=== PATIENT | female | born 1965 ===

== ENCOUNTER 2023-07-09 21:20 | Outpatient (REF) | payer MEDICAID, SELFPAY ==
[2023-07-09 21:45] LABS: HCT 39.8 % (36.0-46.0); MCH 29.1 pg (27.0-33.0); MCHC 32.7 % (32.0-36.0); MCV 89 fL (80-95); Platelet Count 188 10^3/uL (130-400); RBC 4.47 10^6/uL (3.93-5.22); RDW 13.2 % (11.7-14.6); RDW-SD 43.3 fL; WBC 6.05 10^3/uL (4.4-10.8)
[2023-07-09 21:55] LABS: ALT 30 U/L (14-59); AST 23 U/L (15-37); Albumin 3.3 g/dL (3.4-5.0); Alkaline Phosphatase 84 U/L (46-116); Anion Gap 6.6 mmol/L (3-11); BUN 16 mg/dL (7-18); Bilirubin, Total 0.6 mg/dL (0.2-1.0); CO2 27.4 mmol/L (21.0-32.0); CREATININE 0.8 mg/dL (0.55-1.02); Calcium 8.8 mg/dL (8.5-10.1); Chloride 107 mmol/L (98-107); Estimated GFR 84.82 (mL/min/1.73m2); Glucose 109 mg/dL (74-106); Potassium 4.3 mmol/L (3.5-5.1); Sodium 141 mmol/L (136-145); Total Protein 6.9 g/dL (6.4-8.2)
== END 2023-07-09 21:21 | disposition home or self-care (01) ==
LOC: NCHCN 21:20
PROVIDERS: Visit Provider Family Medicine
DX: I10 Essential (primary) hypertension (principal)
CPT/HCPCS: 80053; 85027

== ENCOUNTER 2023-08-27 15:14 | Outpatient (REF) | payer MEDICAID, SELFPAY ==
[2023-08-27 15:41] LABS: Hemoglobin A1C 5.5 % (<5.7)
== END 2023-08-27 15:15 | disposition home or self-care (01) ==
LOC: NCHCN 15:14
PROVIDERS: Referring Provider Family Medicine; Visit Provider Family Medicine
DX: E11.9 Type 2 diabetes mellitus without complications (principal)
CPT/HCPCS: 83036

== ENCOUNTER 2023-10-24 10:04 | Outpatient (REF) | payer MEDICAID, SELFPAY ==
[2023-10-24 21:16] LABS: Calculated LDL 77 mg/dL (<100); Cholesterol 156 mg/dL (<200); HDL Cholesterol 70 mg/dL (40-60); Triglyceride 49 mg/dL (<150)
== END 2023-10-24 10:05 | disposition home or self-care (01) ==
LOC: NCHCN 10:04
PROVIDERS: Visit Provider Family Medicine
DX: E66.8 Other obesity (principal)
CPT/HCPCS: 80061